=== PATIENT | female | born 1970 ===

== ENCOUNTER 2025-06-16 15:32 | Emergency (ER) | payer OTHER ==
[~2025-06-16] VITALS: Ht 149.9 cm; Wt 63.5 kg
[~2025-06-16 15:32] MED LIST: CLIN300 PO; GABA300 PO; HYDACE10B PO; HYDACE5 PO; HYDACE7.5 PO; LEVO750 PO; META800 PO; METCAR750 PO; NAPR500ERA PO; ONDA4ODT MM; RXONDA4ODT MM; RXTRAM50 PO; TRAM50 PO; TRAZ50 PO
[2025-06-16] MEDS ORDERED: GABA300 PO ×2 (16:04→16:06)
== END 2025-06-16 16:00 | disposition home or self-care (01) ==
LOC: ER 15:32
DX: R52 Pain, unspecified (principal); Z76.0 Encounter for issue of repeat prescription; Z88.0 Allergy status to penicillin; Z88.1 Allergy status to other antibiotic agents; Z79.899 Other long term (current) drug therapy
CPT/HCPCS: 99281

== ENCOUNTER 2025-07-26 13:42 | Emergency (ER) | payer OTHER ==
[~2025-07-26] VITALS: Ht 149.9 cm; Wt 61.2 kg
[2025-07-26] MEDS ORDERED: Dexamethasone Sod Phos 10 MG/ML 1ML VIAL PO ONE (14:05)
[2025-07-26] MEDS ORDERED: Lidocaine 4% 1 Patch TOP ONE (14:05)
[2025-07-26] MEDS ORDERED: MOBIC15 MG PO (14:05)
== END 2025-07-26 14:09 | disposition home or self-care (01) ==
LOC: ER 13:42
DX: M54.17 Radiculopathy, lumbosacral region (principal); Z88.0 Allergy status to penicillin; Z88.1 Allergy status to other antibiotic agents
CPT/HCPCS: 99283; A9270; J1100